=== PATIENT | female | born 1965 | race Caucasian/White ===

== ENCOUNTER 2019-07-02 15:05 | Inpatient (IN) | payer OTHER | END 2019-07-07 17:08 | disposition home or self-care (01) | LOC: JER 15:05 → JERBED 20:11 → J8W 23:47 ==

== ENCOUNTER 2023-07-10 04:25 | Day surgery (SDC) | payer OTHER ==
[2023-07-09 10:18] VITALS: BMI 30.7
[2023-07-10 09:36] VITALS: RESP 18; TEMP 98
[2023-07-10 11:29] VITALS: BP 118/62; PULSE 69
== END 2023-07-10 10:30 | disposition home or self-care (01) ==
LOC: JASU-ENDO 04:25
PROVIDERS: ATTEND Internal Medicine Gastroenterology
PROC: 0DBL8ZX Excision of Transverse Colon, Via Natural or Artificial Opening Endoscopic, Diagnostic (ICD-10-PCS; 2023-07-10)
PROC: 0DBN8ZX Excision of Sigmoid Colon, Via Natural or Artificial Opening Endoscopic, Diagnostic (ICD-10-PCS; 2023-07-10)
PROC: 0DBP8ZX Excision of Rectum, Via Natural or Artificial Opening Endoscopic, Diagnostic (ICD-10-PCS; principal; 2023-07-10 08:45)
DX: Z12.11 Encounter for screening for malignant neoplasm of colon (principal); D12.7 Benign neoplasm of rectosigmoid junction; D12.5 Benign neoplasm of sigmoid colon; D12.3 Benign neoplasm of transverse colon; K62.1 Rectal polyp; K64.8 Other hemorrhoids
CPT/HCPCS: 82962; 88305-TC

== ENCOUNTER 2023-07-24 04:14 | Day surgery (SDC) | payer OTHER ==
[2023-07-22 15:53] VITALS: BMI 30.7
[2023-07-24 09:07] VITALS: RESP 19
[2023-07-24 09:14] VITALS: BP 114/79; PULSE 69; TEMP 98.1
== END 2023-07-24 09:15 | disposition home or self-care (01) ==
LOC: JASU-ENDO 04:14
PROVIDERS: ATTEND Internal Medicine Gastroenterology
PROC: 0DB68ZX Excision of Stomach, Via Natural or Artificial Opening Endoscopic, Diagnostic (ICD-10-PCS; principal; 2023-07-24 08:00)
DX: K29.50 Unspecified chronic gastritis without bleeding (principal); I10 Essential (primary) hypertension; E11.9 Type 2 diabetes mellitus without complications; Z79.84 Long term (current) use of oral hypoglycemic drugs
CPT/HCPCS: 82962; 88305-TC; 88342-TC